=== PATIENT | male | born 1980 | race Caucasian/White ===

== ENCOUNTER 2018-08-04 11:36 | Emergency (ER) | payer SELFPAY ==
[2018-08-04 11:39] VITALS: BP 127/83; PULSE 81; TEMP 98; BMI 24.3
[2018-08-04] MEDS ORDERED: FLUORESCEIN NA 1 EA STRIP OD ONE (12:02)
[2018-08-04] MEDS ORDERED: ERYTHROMYCIN 0.5% OPHTHALMIC OINTMENT 3.5 GM TUBE OS ONE (12:02)
[2018-08-04] MEDS ORDERED: TETRACAINE 0.5% HCL 0.6ML DROPPER.BOTTLE OP ONE (12:04)
[2018-08-04] MEDS ORDERED: ERYTHROMYCIN 0.5% OPHTHALMIC OINTMENT 3.5 GM TUBE ONE (12:10)
[2018-08-04] MEDS ORDERED: FLUORESCEIN NA 1 EA STRIP ONE (12:10)
[2018-08-04] MEDS ORDERED: IBUPROFEN 600 MG TABLET (FP) PO ONE ×2 (12:16→12:21)
--- NOTE | 2018-08-04 12:16 | PDOC ---
History of Present Illness - General Chief Complaint: Eye Problem Stated Complaint: RT EYE INJURY Time Seen by Provider: 08/04/18 12:01 History Source: Patient Exam Limitations: No Limitations - History of Present Illness Initial Comments: 08/04/18 12:05 States while at work yesterday felt foreign body fly into Occurred: reports: yesterday Severity: reports: mild, moderate Method of Injury: Yes: direct blow Loss of Consciousness: no loss of consciousness Associated Symptoms (Fall): denies symptoms Past History - Travel Traveled outside of the country in the last 30 days: No Close contact w/someone who was outside of country & ill: No - Past Medical History Allergies/Adverse Reactions: Allergies Allergy/AdvReac Type Severity Reaction Status Date / Time No Known Allergies Allergy Verified 08/04/18 11:39 Home Medications: Ambulatory Orders Erythromycin 0.5% Eye Ointment [Erythromycin 0.5% Eye Ointment -] 1 applic OU TID 5 Days #1 tube 08/04/18 COPD: No - Suicide/Smoking/Psychosocial Hx Smoking History: Never smoked Trauma Specific PMHX - Complaint Specific PMHX Back Injury: No Neck Injury: No Review of Systems - Review of Systems Able to Perform ROS?: Yes Is the patient limited [place]ian proficient: Yes Constitutional: Yes: See HPI. No: Symptoms Reported, Fever, Malaise HEENTM: Yes: Symptoms Reported, See HPI, Eye Pain, Tearing Respiratory: No: Symptoms reported Integumentary: No: Symptoms Reported Neurological: No: Symptoms reported All Other Systems: Reviewed and Negative *Physical Exam - Vital Signs Last Vital Signs Temp Pulse Resp BP Pulse Ox 98 F 81 18 127/83 99 08/04/18 11:37 08/04/18 11:37 08/04/18 11:37 08/04/18 11:37 08/04/18 11:37 - Physical Exam General Appearance: Yes: Nourished, Appropriately Dressed HEENT: positive: Normal ENT Inspection, TMs Normal, Pharynx Normal, Other ( right eye is injected, with mild photophobia. No obvious foreign body or corneal defect. Fluorescein staining reveals a 2 mm x 2 mm abrasion at 1:00 left eye above iris on the cornea. Unable to evaluate using slit lamp which is broken. Acuity 2020 in affected eye) Neck: positive: Supple. 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 NML intact, Fully Oriented, Alert, Normal Mood/ Affect, Normal Response, Motor Strength 08/19 Progress Note - Progress Note Progress Note: Much treated with erythromycin ointment, NSAIDs and will have follow-up with ophthalmology on Monday *DC/Admit/Observation/Transfer Diagnosis at time of Disposition: Corneal abrasion, left Qualifiers: Encounter type: initial encounter Qualified Code(s): S05.02XA - Injury of conjunctiva and corneal abrasion without foreign body, left eye, initial encounter - Discharge Dispostion Disposition: HOME Condition at time of disposition: Stable Decision to Admit order: No - Referrals Referrals: Lorraine Salcido MD [Staff Physician] - - Patient Instructions Printed Discharge Instructions: DI for Corneal Abrasion Additional Instructions: Rest, avoid rubbing eyes Wash hands, use eye drops as directed, wash hands after use May use eye lubricating drops as often as needed erythromycin ointment, one thin film 3 times a day for 5 days Tylenol or ibuprofen for pain relief Avoid contact with others until redness and discharge is gone from eyes. Followup with ophthalmology in one to 2 days for thorough exam Return to emergency department for worsened pain, swelling, vision problems. - Post Discharge Activity Forms/Work/School Notes: Back to Work
== END 2018-08-04 12:30 | disposition home or self-care (01) ==
LOC: JERFT 11:36
PROC: 4A07X0Z Measurement of Visual Acuity, External Approach (ICD-10-PCS; principal; 2018-08-04)
DX: S05.02XA Injury of conjunctiva and corneal abrasion without foreign body, left eye, initial encounter (principal); X58.XXXA Exposure to other specified factors, initial encounter; Y93.9 Activity, unspecified; Y92.69 Other specified industrial and construction area as the place of occurrence of the external cause; Y99.0 Civilian activity done for income or pay
CPT/HCPCS: 99281-25